=== PATIENT | female | born 1955 | race Caucasian/White ===

== ENCOUNTER 2022-08-09 07:58 | Day surgery (SDC) | payer MEDICARE, OTHER ==
[~2022-08-09] VITALS: Ht 162.6 cm; Wt 86.3 kg
[2022-08-09] VITALS (9 sets, daily range): BP systolic 132–167; BP diastolic 69–95
[2022-08-09] MEDS ORDERED: diphenhydrAMINE 25mg capsule PO PRN (08:15)
[2022-08-09] MEDS ORDERED: normal saline 1,000 ML IV SCH (08:15)
[2022-08-09] MEDS ORDERED: TRIA1TAB3 PO (08:32)
[2022-08-09] MEDS ORDERED: CARV12.545 PO (08:32)
[2022-08-09] MEDS ORDERED: ATOR10TA70 PO (08:32)
[2022-08-09] MEDS ORDERED: LOSA50TA64 PO (08:32)
[2022-08-09] MEDS ORDERED: MVI PO (08:33)
[2022-08-09 09:28] LABS: BASOPHILS % (AUTO) 0.6 % (0-1); EOSINOPHILS # (AUTO) 0.1 X10'3 (0-0.9); EOSINOPHILS % (AUTO) 2.3 % (0-6); HEMATOCRIT 43.9 % (35.0-45.0); HEMOGLOBIN 14.8 g/dl (12.0-16.0); LYMPHOCYTES # (AUTO) 1.8 X10'3 (1.1-4.8); LYMPHOCYTES % (AUTO) 29.9 % (21-51); MEAN CORPUSCULAR HEMOGLOBIN 30.5 PG (27.0-31.0); MEAN CORPUSCULAR HGB CONC 33.8 g/dL (33.0-36.5); MEAN CORPUSCULAR VOLUME 90.1 FL (78-98); MEAN PLATELET VOLUME 7.8 FL (7.4-10.4); MONOCYTES # (AUTO) 0.5 X10'3 (0-0.9); MONOCYTES % (AUTO) 8.9 % (2-12); NEUTROPHILS # (AUTO) 3.6 X10'3 (1.8-7.7); NEUTROPHILS % (AUTO) 58.3 % (42-75); PLATELET COUNT 236 X10'3 (140-440); RED BLOOD COUNT 4.87 X10'6 (4.20-5.60); RED CELL DISTRIBUTION WIDTH 12.4 % (11.5-14.5); WHITE BLOOD COUNT 6.1 X10'3 (4.5-11.0)
[2022-08-09 09:37] LABS: ALBUMIN 4.4 G/DL (3.4-5.0); ANION GAP 8 (8-16); BLOOD UREA NITROGEN 26 MG/DL (7-18); BUN/CREATININE RATIO 30.6 (6.6-38.0); CALCIUM 9.5 MG/DL (8.5-10.1); CHLORIDE 103 MMOL/L (99-107); CREATININE 0.85 MG/DL (0.40-0.90); GLUCOSE 98 MG/DL (70-104); POTASSIUM 3.5 MMOL/L (3.5-5.1); SODIUM 140 MMOL/L (135-145); eGFR 67 ML/MIN
[2022-08-09] MEDS ORDERED: verapamil 2.5 mg/ml inj IV ONE (10:38)
[2022-08-09] MEDS ORDERED: nitroGLYCERIN-Tridil 50MG/D5W 250 ML IV ONE (10:38)
[2022-08-09] MEDS ORDERED: LIDOcaine 1%/PF 5ML 10 MG/ML VIAL ONE ×2 (10:39)
[2022-08-09] MEDS ORDERED: heparin 1,000unit/ml 10ml vial 10 ML ONE (10:39)
[2022-08-09] MEDS ORDERED: fentaNYL/PF 50MCG/1 ML 2ML syringe ONE (10:39)
[2022-08-09] MEDS ORDERED: iohexol 350MG/ML 100ml bottle IV ONE ×2 (10:39→11:38)
[2022-08-09] MEDS ORDERED: midazolam 1 mg/ML 2ml injection ONE (10:39)
[2022-08-09] MEDS ORDERED: ticagrelor 90mg tablet ONE (11:53)
== END 2022-08-09 15:30 | disposition home or self-care (01) ==
LOC: SSTAY O 07:58
PROVIDERS: ATTEND Internal Medicine Cardiovascular Disease
DX: R94.39 Abnormal result of other cardiovascular function study (principal); I25.10 Atherosclerotic heart disease of native coronary artery without angina pectoris; I10 Essential (primary) hypertension; Z79.899 Other long term (current) drug therapy; E78.5 Hyperlipidemia, unspecified; Z87.891 Personal history of nicotine dependence; Z98.890 Other specified postprocedural states
CPT/HCPCS: 36415; 80048; 83735; 85025; 85610; 93005; 93458; 99152; 99153; C1725; C1751; C1769; C1874; C1894; C9600; J1644; J2250; J3010; J3490; J7030; Q0163; Q9967; A4620; A5120; A6258; A6402